=== PATIENT | male | born 1965 | race Caucasian/White ===

== ENCOUNTER 2023-01-09 12:36 | Outpatient (CLI) | payer SELFPAY ==
--- NOTE | 2023-01-09 12:41 | W.ANESCHARGE ---
Anesthesia Charges Start Date/Time Anesthesia Start Date: 01/09/23 Anesthesia Start Time: 13:14 Stop Date/Time Anesthesia Stop Date: 01/09/23 Anesthesia Stop Time: 13:55
--- NOTE | 2023-01-09 13:58 | W.ANESCHARGE ---
Anesthesia Charges Start Date/Time Anesthesia Start Date: 01/09/23 Anesthesia Start Time: 13:14 Stop Date/Time Anesthesia Stop Date: 01/09/23 Anesthesia Stop Time: 13:55
== END 2023-01-09 12:37 | disposition home or self-care (01) ==
LOC: OP CLINIC 12:37
PROVIDERS: PCP Family Medicine; Visit Provider Surgery
DX: Z12.11 Encounter for screening for malignant neoplasm of colon (principal); K57.30 Diverticulosis of large intestine without perforation or abscess without bleeding
CPT/HCPCS: 00811; 00812; 45378; J2704

== ENCOUNTER 2024-12-14 08:20 | Outpatient (CLI) | payer SELFPAY | END 2024-12-14 08:21 | disposition home or self-care (01) | LOC: NFLDREF 12-28 01:50 | PROVIDERS: PCP Family Medicine; Referring Provider Family Medicine; Visit Provider Family Medicine | DX: E11.65 Type 2 diabetes mellitus with hyperglycemia (principal) | CPT/HCPCS: 80053; 80061; 82043; 82570 ==